=== PATIENT | male | born 1990 | race Caucasian/White ===

== ENCOUNTER 2017-01-01 14:42 | Emergency (ER) | payer OTHER ==
[2017-01-01 14:47] VITALS: BP 155/66
[2017-01-01] MEDS ORDERED: MULTIVITAMINS1 EAC9 PO (14:47)
--- NOTE | 2017-01-01 15:07 | ED INFLUENZA/URI COMPLAINT ---
History of Present Illness General Chief Complaint: Fever Stated Complaint: FEVER Source: patient, old records, EMS Exam Limitations: no limitations Vital Signs & Intake/Output Vital Signs & Intake/Output Vital Signs Date Time Temp Pulse Resp B/P Pulse O2 O2 Flow FiO2 Ox Delivery Rate 01/01 1539 101.4 01/01 1447 101.4 107 26 155/66 97 Room Air Allergies Coded Allergies: No Known Allergies (01/01/17) Reconcile Medications Amoxicillin/Potassium Clav (Augmentin 875-125 Tablet) 875 MG-125 MG TABLET 1 TAB PO BID PHARYNGITIS Multiple Vitamin (Multivitamins) 1 EACH TABLET 1 TAB PO DAILY VITAMINS ( Reported) Triage Note: PER PT [facility]ENT [facility] FOR FLU-LIKE SYMPTOMS X 3 DAYS HAD A FEVER X 3 DAYS AND BODY ACHES, PER PT TEMP 104 AT [facility] LAST ADVIL DOSE 3 TABS AT 0900. TEMP 101.4 IN ED/ Triage Nurses Notes Reviewed? yes Onset: Abrupt Duration: day(s): (2), constant Timing: recent history Severity: moderate Severity Numbers: 5 Prior Episodes/Possible Cause: no prior episodes No Modifying Factors: none Associated Symptoms: fever/chills, sore throat HPI: 26-year-old male with no medical history presents brought in by ambulance from an urgent care after he had a fever of 103.7 at the urgent care. He states for the past 2 days he's had a sore throat associated fever chills and generalized bodyaches. He reports to multiple sick contacts at home with similar symptoms. No coughing ear pain and congestion no nausea vomiting no diarrhea. He denies any chest pain shortness of breath abdominal pain. His last dose of Advil was at 9:00 this morning. He has not taken anything else for his symptoms. No change in his voice no difficulty swallowing or no modifying factors or associated symptoms otherwise. (ELZA EID) Past History Travel History Traveled to [place] past 21 day No Medical History Any Pertinent Medical History? none Neurological: NONE EENT: NONE Cardiovascular: NONE Respiratory: NONE Gastrointestinal: NONE Hepatic: NONE Renal: NONE Musculoskeletal: NONE Psychiatric: NONE Endocrine: NONE Surgical History Surgical History: none Psychosocial History What is your primary language Greenlandic Tobacco Use: Never used Family History Hx Contributory? No (ELZA EID) Review of Systems Review of Systems Constitutional: Reports: see HPI. All Other Systems: Reviewed and Negative Comments Review of systems: See HPI, All other systems negative. Constitutional, chills fever, no malaise HEENT: No visual changes no sore throat no congestion, Cardiovascular: No chest pain , no palpitation Skin, no rashes, no change in skin Respiratory: No dyspnea no cough no sputum no hemoptysis GI: No nausea no vomiting, no diarrhea, no bloating/constipation : No dysuria No hematuria, Muscle skeletal: No joint pain, no joint swelling, no back pain, no neck pain, Neurologic: no headache Psych: No stress Heme/endocrine: No bruising no bleeding Immunology: No lymphadenopathy (ELZA EID) Physical Exam Physical Exam General Appearance: well developed/nourished, no apparent distress, alert, awake Ears, Nose, Throat: pharynx is erythematous Comments: Well-developed well-nourished person in no acute distress Head/Face: Atraumatic, no maxillary/frontal sinus tenderness, no facial swelling Eyes: PERRL, EOMI, no conjunctival injection Ear:External auditory canal and Tympanic membranes clear, no erythema, no FB. Nose: atraumatic.Normal inspection: No bleeding, no septal hematoma Throat: Moist mucous membranes.pharynx is erythematous, no trismus no Uvula displacement no stridor/drooling or assymetry. No swelling or edema. Neck: Supple, no lymphadenopathy, FROM Back: Nontender, no CVA tenderness. Full range of motion Cardiovascular: Regular rate and rhythms no murmurs rubs Respiratory: No respiratory distress. Patient speaking in full complete sentences. Breath sounds clear to auscultation bilaterally: NO W/R/R Abdomen: Soft, nontender Extremity: No edema, full range of motion of extremities, normal and equal pulses bilaterally, 5 out of 5 strength noted to bilateral upper and lower extremities Neuro: Alert oriented x3, motor sensory normal,There were no obvious focal neurologic abnormalities. Skin: No appreciable rash on exposed skin, skin is warm and dry. Psych: Mood and affect is normal, memory and judgment is normal. Core Measures Severe Sepsis Present: No Septic Shock Present: No (ELZA EID) Progress Differential Diagnosis: influenza, otitis, pneumonia, pharyngitis, sinusitis, bronchitis, mono Plan of Care: Orders Procedure Date/time Status THROAT CULTURE W/QUICK STREP 01/01 1502 Active RAPID VIRAL INFLUENZA A 01/01 1448 Complete Flu and strep swab sent patient medicated with Tylenol he is nontoxic-appearing speaking full complete sentences no trismus no uvular displacement I discussed with him his flu and strep swab results need for supportive care Tylenol Motrin every 4-6 hours prescription for Augmentin was sent to his pharmacy advise fluids return anytime sooner with any concerns or worsening of his symptoms answered all his questions they feel comfortable plan clear discharge (ELZA EID) Initial ED EKG: none (ELZA EID) Departure Departure Time of Disposition: 1600 Disposition: HOME OR SELF CARE Condition: Stable Clinical Impression Primary Impression: Pharyngitis Referrals: UNKNOWN (PCP/Family) Additional Instructions: AUGMENTIN DIRECTED, TYLENOL OR MOTRIN EVERY 4-6 HOURS FOR FEVERS. DRINK PLENTY OF FLUIDS. RETURN IF YOU HAVE WORSENING SYMPTOMS, PERSISTENT FEVERS DESPITE MEDICATION OR ANY OTHER CONCERNS Departure Forms: Customer Survey General Discharge Information Prescriptions: Current Visit Scripts Amoxicillin/Potassium Clav (Augmentin 875-125 Tablet) 1 TAB PO BID #14 TAB (ELZA EID) PA[employer] Co-Sign Statement Statement: ED Attending supervision documentation- [] I saw and evaluated the patient. I have also reviewed all the pertinent lab results and diagnostic results. I agree with the findings and the plan of care as documented in the PA's/[employer]'s documentation. [X] I have reviewed the ED Record and agree with the PA's/[employer]'s documentation. [] Additions or exceptions (if any) to the PAs/[employer]'s note and plan are summarized below: [] (NAHEED AKBAR DO)
[2017-01-01] MEDS ORDERED: AUGMENTIN 875-1 EACH PO (16:01)
== END 2017-01-01 16:10 ==
LOC: ERH 14:42
DX: J02.9 Acute pharyngitis, unspecified (principal)
CPT/HCPCS: 87804; 87804-59